=== PATIENT | male | born 1945 | race Hispanic/Latino ===

== ENCOUNTER 2025-07-12 11:49 | Day surgery (SDC) | payer OTHER ==
[~2025-07-12] VITALS: Ht 175.3 cm; Wt 89.8 kg
[2025-07-12 12:05] VITALS: BP 144/59; PULSE 62; RESP 14; TEMP 97
[2025-07-12] MEDS ORDERED: IOHEXOL-350 50ML VIAL IV ONE (13:44)
[2025-07-12] MEDS ORDERED: LIDOCAINE HCL 400MG/20ML VIAL ONE (13:44)
[2025-07-12] MEDS ORDERED: HEParin-NS 1,000 UNIT/500 ML 500 ML IV ONE (13:44)
--- NOTE | 2025-07-12 14:45 | NUR ---
[facility] CALLED FOR TRANSPORT BACK TO [facility] [place] 517. REPORT GIVEN TO NURSE RIGOBERTO BRADFORD
[2025-07-12 15:00] VITALS: BP 151/55; PULSE 63; RESP 18; TEMP 97.8
--- NOTE | 2025-07-12 15:21 | HMCIMG ---
Liver ULTRASOUND INDICATION: 4 cholecystotomy tube placement COMPARISON: None TECHNIQUE: Multiplanar sonographic images of the right upper quadrant were obtained earlier in real-time using grayscale and color Doppler technique, with ultrasound-guided placement of a cholecystotomy tube report. FINDINGS/IMPRESSION: Uneventful ultrasound-guided cholecystotomy tube was placed. Details is in the procedure report.
--- NOTE | 2025-07-12 15:32 | NUR ---
[facility] [place] [facility] arrived at this time to take pt back to [facility] [place].
--- NOTE | 2025-07-13 03:47 | OP ---
DATE OF PROCEDURE: 07/12/2025 PROCEDURE: Percutaneous ultrasound and fluoroscopy-guided placement of an 8-Tuvaluan multipurpose drainage catheter in the gallbladder lumen. DESCRIPTION OF PROCEDURE: After the right upper quadrant was prepped and draped in the usual sterile technique under ultrasound fluoroscopy guidance, 1% Xylocaine was used for local anesthetic. A Chiba needle was then introduced into the gallbladder under ultrasound guidance. Over an angiographic wire, this was exchanged and an 8-Tuvaluan dilator was introduced. Over an angiographic wire, an 8-Tuvaluan multipurpose drainage catheter was placed into the gallbladder lumen. The cholecystotomy demonstrated the gallbladder is full of gallstones of varying sizes. The catheter was secured with 3-0 silk suture and connected to a drainage bag to drain by gravity. IMPRESSION: * Placement of 8-Tuvaluan cholecystotomy tube, which appears to be in satisfactory position. * The gallbladder is very distended and full of gallstones of varying sizes. TID: [id number] RECEIPT: [id number] [facility]
== END 2025-07-12 15:54 | disposition short-term general hospital (02) ==
LOC: DAH 11:49
PROVIDERS: ATTEND Nurse Practitioner Family
DX: K80.00 Calculus of gallbladder with acute cholecystitis without obstruction (principal); I12.9 Hypertensive chronic kidney disease with stage 1 through stage 4 chronic kidney disease, or unspecified chronic kidney disease; N18.9 Chronic kidney disease, unspecified; M19.90 Unspecified osteoarthritis, unspecified site; Z87.891 Personal history of nicotine dependence; E78.5 Hyperlipidemia, unspecified; Z88.0 Allergy status to penicillin; Z88.8 Allergy status to other drugs, medicaments and biological substances; Z79.899 Other long term (current) drug therapy
CPT/HCPCS: 47490; C1769; C1894; C1729; J3490; J1644; Q9967; 10030